=== PATIENT | female | born 1990 | race Caucasian/White ===

== ENCOUNTER 2020-04-29 18:53 | Inpatient (IN) | payer SELFPAY ==
[2020-04-29 19:02] VITALS: BP 129/99; PULSE 105; RESP 14; TEMP 36.6; O2SAT 100
[2020-04-29 19:45] VITALS: BP 138/98; PULSE 97; RESP 16; O2SAT 100
--- NOTE | 2020-04-29 19:51 | PC.NURSE ---
IV ESTABLISHED BY BY SANJEEV HOLT.
--- NOTE | 2020-04-29 20:00 | ECG_ITS ---
[facility] Test Date: 2020-04-29 Pat Name: Adelaide Muñoz Department: Room: Gender: Female Curriculum Developer: : 1990 Requested By: Talia Mishra I Order Number: [id number] Hugh MD: Triny Bradshaw M.D. Measurements Intervals [place] Rate: 90 P: 69 VA: 141 QRS: 47 QRSD: 89 T: 40 QT: 371 QTc: 454 Interpretive Statements SINUS RHYTHM No previous ECG available for comparison Electronically Signed On 04-29-2020 21:14:36 CDT by Triny Bradshaw M.D. [id number]
[2020-04-29 20:11] LABS: Basophils # 0.1 10^3/uL (0.0-0.1); Basophils % 0.6 %; Eosinophils # 0.2 10^3/uL (0.0-0.8); Hematocrit 41.5 % (37.0-47.0); Hemoglobin 13.7 g/dL (11.5-15.3); Lymphocytes # 4.9 10^3/uL (0.8-4.8); Lymphocytes % 49.6 %; Mean Corpuscular Volume 87.9 fL (81-99); Monocytes # 0.7 10^3/uL (0.2-0.9); Monocytes % 7.2 %; Neutrophils # 3.96 10^3/uL (1.8-7.7); Neutrophils % 40.4 %; Nucleated Red Blood Cells % 0 %; Platelet Count 436 10^3/cmm (130-400); Red Blood Count 4.72 10^6/uL (4.1-5.3); Red Cell Distribution Width 12.3 % (12.1-15.1); White Blood Count 9.8 10^3/uL (4.0-10.0)
[2020-04-29 20:21] LABS: Alanine Aminotransferase 32 U/L (0-33); Albumin Level 4.5 g/dL (3.5-5.2); Alkaline Phosphatase 77 IU/L (35-105); Anion Gap 13.3 (5-19); Aspartate Amino Transferase 22 U/L (0-32); Blood Urea Nitrogen 9 mg/dL (6-20); Carbon Dioxide 25 mmol/L (22-29); Chloride 99 mmol/L (98-107); Globulin 3.3 g/dL (1.3-4.6); Glomerular Filtration Rate 143.9 mL/min (90-130); Glucose 98 mg/dL (65-115); Osmolality Calculated 274 mOsm/kg (285-295); Potassium 3.3 mmol/L (3.5-5.1); Sodium 134 mmol/L (136-145); Total Bilirubin 0.5 mg/dL (0.15-1.2); Total Protein 7.8 g/dL (6.6-8.7)
[2020-04-29 20:25] LABS: Acetaminophen < 5.0 ug/mL (10-30); Alcohol Level < 10 mg/dL (0-10); Salicylate < 0.3 mg/dL (3-10)
--- NOTE | 2020-04-29 20:35 | PC.NURSE ---
INFORMED DR. ALVA OF PT RESPONDING TO MODERATE PAINFUL STIMULI. VO WITH READBACK FOR 0.4MG NARCAN IVP IF PT O2 SAT VIA RA GOES BELOW 90%.
[2020-04-29] MEDS: naloxone 0.4 mg/ml SDV IVP ×2 (20:54→23:27)
--- NOTE | 2020-04-29 21:51 | PC.NURSE ---
pc to poison control spoke with portia ramirez. no flumazenil. give fluids other supportive care as needed.
[2020-04-29 21:55] LABS: HCG Qualitative Urine. Negative (Negative); Protein Urine Trace (Negative); Specific Gravity, Urine 1.025 (1.005-1.030); Urine Appearance Clear (CLEAR); Urine Color Yellow (Yellow); pH Urine 5 (5-7)
[2020-04-29 21:56] LABS: Add Urine Microscopic? YES; Bilirubin Urine 1+ (NEGATIVE); Blood Urine Neg (Negative); Glucose Urine UA Norm (Normal); Ketones Urine Negative (Negative); Leukocyte Esterase Urine Negative (Negative); Nitrate Urine Negative (Negative); Urobilinogen Urine 1 mg/dL (Negative)
--- NOTE | 2020-04-29 21:56 | PC.NURSE ---
pc back from poison control spoke with oprtia pharmacist she recommended to obtain baseline acetaminophen and repeat it in for hours.
[2020-04-29 22:00] VITALS: BP 115/83; PULSE 86; RESP 20; O2SAT 97
[2020-04-29 22:00] LABS: Add Urine Culture? No; Amorphous Sediment Urine 1+; Amphetamines Screen Urine Positive (Negative); Bacteria Urine TRACE; Barbiturates Screen Urine Negative (Negative); Benzodiazepines Screen Urine Positive (Negative); Cocaine Screen Urine Negative (Negative); Mucus Urine 4+; Opiate Screen Urine Positive (Negative); PCP Screen Urine Positive (Negative); RBC Urine 0-4 /hpf (0-2); Squamous Epithelial Cell Urine 0-4 (0-5); THC Screen Urine Positive (Negative); WBC Urine 0-4 /hpf (0-5)
--- NOTE | 2020-04-29 22:02 | PC.NURSE ---
reported to dr. gamboa about rechecking acetaminophen level after 4 hours.
--- NOTE | 2020-04-29 22:20 | W.ED.OVERDOS ---
HPI - Overdose General: Chief Complaint: Overdose Stated Complaint: OVERDOSE Time Seen by Provider: 04/29/20 19:37 Source: patient, family (grandmother) and EMS Mode of arrival: EMS Limitations: altered mental status History of Present Illness: HPI Narrative: Patient is a 29-year-old female was brought in by EMS with a history of intentional overdose of Ativan, 19 tablets of the 1 mg tablets as well as 13 tablets of hydrocodone with strength unknown. Patient is quite drowsy and can only give a limited history. She however denies suicidal intention, but states she was stressed out. She did not receive any medications on her way to the ED. Her grandmother says the patient needs psychiatric help and will probably be best served by being admitted to the hospital MD complaint: intentional overdose Review of Systems General: Reports: ROS unobtainable due to mental status [facility] Female Reproductive History: Date of last menstrual period: 04/03/20 Physical Exam Const: COMMON NORMALS: no acute distress, average body habitus, patient oriented x3, no limitations, healthy appearing, alert and well nourished HENMT: COMMON NORMALS: normocephalic, atraumatic and moist oral mucous membranes HEAD & SCALP: normocephalic and atraumatic Eye: COMMON NORMALS: Equal, round and reactive pupils present, EOMs intact bilaterally, conjunctivae normal and no scleral icterus CONJUNCTIVA: Yes conjunctivae normal PUPIL: Yes Equal, round and reactive pupils present Neck/C-Spine: COMMON NORMALS: no meningeal signs and no JVD Resp: COMMON NORMALS: normal respiratory effort, No retractions, No use of accessory muscles, clear to auscultation bilaterally and percussion normal AUSCULTATION: clear to auscultation bilaterally PERCUSSION: percussion normal Cardio: COMMON NORMALS: no JVD, regular rate, regular rhythm, S1 normal heart sound present, S2 normal heart sound present, No gallops present (Cardio), No clicks present (Cardio), No murmurs present (Cardio), No rub (Cardio) and Peripheral pulses 2+ throughout RATE: regular rate RHYTHM: regular rhythm HEART SOUNDS: S1 normal heart sound present and S2 normal heart sound present PERIPHERAL PULSES: Peripheral pulses 2+ throughout GI: COMMON NORMALS: Normal to inspection, nondistended, normoactive bowel sounds present, Soft to palpation, non-tender, No hepatosplenomegaly present, no masses and no bruits PALPATION: Yes Soft to palpation and Yes No hepatosplenomegaly present Extremity: COMMON NORMALS: normal to inspection, full ROM, capillary refill normal, no calf tenderness and no pedal edema Neuro: COMMON NORMALS: patient oriented x3 SENSORIUM/ORIENTATION: Yes alert MENINGEAL SIGNS: Yes no meningeal signs Course Consultations: Consultation #1: Dr. Eason, psychiatrist. He kindly accepted patient to his service Time: 00:50 Vital Signs: Vital signs: Vital Signs Temperature 97.8 F 04/29/20 19:02 Pulse Rate 97 04/29/20 23:10 Respiratory Rate 15 04/29/20 23:10 Blood Pressure 115/77 04/29/20 22:44 Pulse Oximetry 100 04/29/20 23:10 MDM - Overdose MDM Narrative: Medical decision making narrative: 29-year-old female patient who was brought into the emergency department after a suicide attempt. She overdosed on some hydrocodone/acetaminophen and Ativan. Her drug screen however showed she was positive for much more than that including PCP, methamphetamines, marijuana. She was initially very drowsy and lethargic and was given a trial of Narcan which had minimal effect. After observation in the emergency department and repeating a 4-hour Tylenol level she was eventually alert and was able to walk without assistance down the hallway in the emergency department. She is therefore being admitted to the neuropsychiatric unit for further evaluation and management. A 96-hour hold order was placed. Medical Records: Attestation: I reviewed the patient's medical records. Lab Data: Attestation: I reviewed the patient's lab results. Labs: Lab Results 04/29/20 04/29/20 04/29/20 Range/Units 20:00 20:00 21:34 WBC 9.8 (4.0-10.0) 10^3/ uL RBC 4.72 (4.1-5.3) 10^6/u L Hgb 13.7 (11.5-15.3) g/dL Hct 41.5 (37.0-47.0) % MCV 87.9 (81-99) fL MCH 29.0 (28.0-34.0) pg MCHC 33.0 (30.0-36.0) g/dL RDW 12.3 (12.1-15.1) % Plt Count 436 H (130-400) 10^3/c mm MPV 9.0 (7.4-10.4) fL Neut % (Auto) 40.4 % Lymph % (Auto) 49.6 % [place] % (Auto) 7.2 % Eos % (Auto) 2.0 % Baso % (Auto) 0.6 % Neut # (Auto) 3.96 (1.8-7.7) 10^3/u L Lymph # (Auto) 4.9 H (0.8-4.8) 10^3/u L [place] # (Auto) 0.7 (0.2-0.9) 10^3/u L Eos # (Auto) 0.2 (0.0-0.8) 10^3/u L Baso # (Auto) 0.1 (0.0-0.1) 10^3/u L Nucleated RBC % (a uto) 0 % Nucleated RBCs # 0.0 /100WBC Sodium 134 L (136-145) mmol/L Potassium 3.3 L (3.5-5.1) mmol/L Chloride 99 (98-107) mmol/L Carbon Dioxide 25 (22-29) mmol/L Anion Gap 13.3 (5-19) BUN 9 (6-20) mg/dL Creatinine 0.5 (0.5-0.9) mg/dL GFR Calculation 143.9 H (90-130) mL/min Glucose 98 (65-115) mg/dL Calculated Osmolal ity 274 L (285-295) mOsm/k g Calcium 9.0 (8.5-10.5) mg/dL Total Bilirubin 0.5 (0.15-1.2) mg/dL AST 22 (0-32) U/L ALT 32 (0-33) U/L Alkaline Phosphata se 77 (35-105) IU/L Total Protein 7.8 (6.6-8.7) g/dL Albumin 4.5 (3.5-5.2) g/dL Globulin 3.3 (1.3-4.6) g/dL HCG, Qual Negative (Negative) Urine Color (Yellow) Urine Appearance (CLEAR) Urine pH (5-7) Ur Specific Gravit y (1.005-1.030) Urine Protein (Negative) Urine Glucose (UA) (Normal) Urine Ketones (Negative) Urine Blood (Negative) Urine Nitrate (Negative) Urine Bilirubin (NEGATIVE) Urine Urobilinogen (Negative) mg/dL Ur Leukocyte Lori ase (Negative) Urine RBC (0-2) /hpf Urine WBC (0-5) /hpf Ur Squamous Epith Cells (0-5) Amorphous Sediment Urine Bacteria (NONE) Urine Mucus Salicylates < 0.3 L (3-10) mg/dL Urine Opiates Scre en (Negative) ng/mL Acetaminophen < 5.0 L (10-30) ug/mL Ur Barbiturates Sc reen (Negative) ng/mL Ur Phencyclidine S crn (Negative) ng/mL Ur Amphetamines Sc reen (Negative) ng/mL U Benzodiazepines Scrn (Negative) ng/mL Urine Cocaine Scre en (Negative) ng/mL U Marijuana (THC) Screen (Negative) ng/mL Ethyl Alcohol < 10 (0-10) mg/dL 04/29/20 04/29/20 04/30/20 Range/Units 21:34 21:34 00:10 WBC (4.0-10.0) 10^3/ uL RBC (4.1-5.3) 10^6/u L Hgb (11.5-15.3) g/dL Hct (37.0-47.0) % MCV (81-99) fL MCH (28.0-34.0) pg MCHC (30.0-36.0) g/dL RDW (12.1-15.1) % Plt Count (130-400) 10^3/c mm MPV (7.4-10.4) fL Neut % (Auto) % Lymph % (Auto) % [place] % (Auto) % Eos % (Auto) % Baso % (Auto) % Neut # (Auto) (1.8-7.7) 10^3/u L Lymph # (Auto) (0.8-4.8) 10^3/u L [place] # (Auto) (0.2-0.9) 10^3/u L Eos # (Auto) (0.0-0.8) 10^3/u L Baso # (Auto) (0.0-0.1) 10^3/u L Nucleated RBC % (a uto) % Nucleated RBCs # /100WBC Sodium (136-145) mmol/L Potassium (3.5-5.1) mmol/L Chloride (98-107) mmol/L Carbon Dioxide (22-29) mmol/L Anion Gap (5-19) BUN (6-20) mg/dL Creatinine (0.5-0.9) mg/dL GFR Calculation (90-130) mL/min Glucose (65-115) mg/dL Calculated Osmolal ity (285-295) mOsm/k g Calcium (8.5-10.5) mg/dL Total Bilirubin (0.15-1.2) mg/dL AST (0-32) U/L ALT (0-33) U/L Alkaline Phosphata se (35-105) IU/L Total Protein (6.6-8.7) g/dL Albumin (3.5-5.2) g/dL Globulin (1.3-4.6) g/dL HCG, Qual (Negative) Urine Color Yellow (Yellow) Urine Appearance Clear (CLEAR) Urine pH 5 (5-7) Ur Specific Gravit y 1.025 (1.005-1.030) Urine Protein Trace (Negative) Urine Glucose (UA) Norm (Normal) Urine Ketones Negative (Negative) Urine Blood Neg (Negative) Urine Nitrate Negative (Negative) Urine Bilirubin 1+ H (NEGATIVE) Urine Urobilinogen 1 H (Negative) mg/dL Ur Leukocyte Lori ase Negative (Negative) Urine RBC 0-4 H (0-2) /hpf Urine WBC 0-4 H (0-5) /hpf Ur Squamous Epith Cells 0-4 H (0-5) Amorphous Sediment 1+ Urine Bacteria Trace (NONE) Urine Mucus 4+ Salicylates (3-10) mg/dL Urine Opiates Scre en Positive H (Negative) ng/mL Acetaminophen < 5.0 L (10-30) ug/mL Ur Barbiturates Sc reen Negative (Negative) ng/mL Ur Phencyclidine S crn Positive H (Negative) ng/mL Ur Amphetamines Sc reen Positive H (Negative) ng/mL U Benzodiazepines Scrn Positive H (Negative) ng/mL Urine Cocaine Scre en Negative (Negative) ng/mL U Marijuana (THC) Screen Positive H (Negative) ng/mL Ethyl Alcohol (0-10) mg/dL Discharge Plan Discharge Patient Disposition: Admitted As Inpatient Clinical Impression: Suicide attempt by multiple drug overdose, Polysubstance abuse Condition: Stable Referrals: Shaina Cole DO [Primary Care Provider] - Coding Level of Care Code ED Inside Barrel Lathe Operator for Chg Fwd Exam Comprehensive
[2020-04-29 22:44] VITALS: BP 115/77; PULSE 82; RESP 15; O2SAT 97
[2020-04-29 23:10] VITALS: PULSE 97; RESP 15; O2SAT 100
--- NOTE | 2020-04-29 23:10 | PC.NURSE ---
while at beside pt responds to moderate painful stimuli. informed dr. bee nichols with read back to adm 0.4mg narcan ivp. informed mela verbalized she would adm 0.4mg of ivp narcan.
--- NOTE | 2020-04-29 23:12 | PC.NURSE ---
report given to mela weiner assumed care.
[2020-04-30 00:45] LABS: Acetaminophen < 5.0 ug/mL (10-30)
[2020-04-30 02:11] VITALS: BP 128/62; PULSE 103; RESP 18
[2020-04-30 02:17] VITALS: BP 120/87; PULSE 98; RESP 19; TEMP 37.1; O2SAT 99
[2020-04-30 02:34] VITALS: BMI 22.3
[2020-04-30 06:00] VITALS: BP 97/66; PULSE 102; RESP 20; TEMP 37; O2SAT 99
--- NOTE | 2020-04-30 06:03 | PC.NURSE ---
HOME MEDS UNABLE TO VERIFY PT HOME MEDS DUE TO [facility] BEING CLOSED AT THIS TIME.
--- NOTE | 2020-04-30 10:50 | PM.NHP ---
Providers/Chief Complaint Admitting Physician: Kyler Eason MD Primary Care Provider: Shaina Cole DO Chief Complaint: OVERDOSE HPI NPU History of Present Illness Adelaide Muñoz is a 29 year old female who threw some mysterious series of events presented to the emergency room by ambulance. Emergency room physician note:HPI Narrative: Patient is a 29-year-old female was brought in by EMS with a history of intentional overdose of Ativan, 19 tablets of the 1 mg tablets as well as 13 tablets of hydrocodone with strength unknown. Patient is quite drowsy and can only give a limited history. She however denies suicidal intention, but states she was stressed out. She did not receive any medications on her way to the ED. She admits that she took excessive Ativan due to the stress that she was under. She says that she is dealing with her fianc? of 15 years and his evolving schizophrenia. She feels that all that she needs is time to rest and sleep off the medications that she took and have her Ativan and tramadol restarted. She did not elaborate. There is also some family discord which appears to be chronic as it resonates with documents and issues discussed in her prior outpatient mental health notes. She says that she suffers from anxiety for which she receives Ativan and is effective. She also suffers from chronic pain for which she receives tramadol. She takes them together without difficulty. She also has been prescribed Lamictal. She does not want to be on that medication because it puts her brain in a fog. However she does not feel that having a mood stabilizer would be beneficial if it will not cause her brain to be foggy. Otherwise she denied suicidal or homicidal ideation currently or any time in the past. She denied the presence of auditory or visual hallucinations. She refused to discuss the results of her urine drug screen saying that those results are not true. Laboratory Tests 04/29/20 04/29/20 20:00 21:34 Ur Barbiturates Screen Negative Ur Phencyclidine Scrn Positive H Ur Amphetamines Screen Positive H U Benzodiazepines Scrn Positive H Urine Cocaine Screen Negative U Marijuana (THC) Screen Positive H Ethyl Alcohol < 10 Past mental health history reveals that she was heavily involved in the behavioral health care outpatient system. Most recently she was being maintained on Lamictal 200 mg daily and Ativan 1 mg twice daily. She has never been hospitalized for mental health reasons. Social history please see mental status exam Review of Systems Narrative: Review of Systems Constitutional: Complains of: Fatigue Eyes: Complains of: No eye symptoms ENT/Mouth: Complains of: No ENTM symptoms Cardiovascular: Complains of: No cardiac symptoms Respiratory: Complains of: No respiratory symptoms GI: Complains of: No GI symptoms Neuro: Complains of: No neuro symptoms Musculoskeletal: Complains of: No musculoskeletal symptoms Skin: Complains of: No skin symptoms Hematologic/Lymphatic: Complains of: No hematologic/lymphatic symptoms Endocrine: Complains of: No endocrine symptoms : Complains of: No symptoms Psych: Complains of: Denied the presence of depression, Suicide ideation Meds NPU Home Medications Medication Instructions Recorded Confirmed Last Taken Type Benadryl 04/30/20 Unknown History Ortho Tri-Cyclen (28) 04/30/20 Unknown History tramadol 04/30/20 Unknown History Allergies Allergy/AdvReac Type Severity Reaction Status Date / Time penicillin G Allergy Unknown Verified 04/29/20 19:14 Mental Status Exam MSE Comments: Mental Status Exam: Appearance: hygiene is fair; no gross neurological deficits., gait is unremarkable; AIMS=0 Speech: Speech is of normal rate and rhythm and easily understood. Thought processes: Thought processes are abstract. Judgment is not adequate for safety. Associations: intact Psychotic processes: There is no indication of guarding or paranoia. There is no attention to the internal stimuli. Auditory and visual hallucinations are denied. Judgment: Insight is fair. Problem solving skills are adequate for safety. Orientation: The patient is oriented to person, place time and situation. Memory: no deficits noted in immediate, intermediate, or remote spheres. Attention: The patient is alert and interpersonally engaged. Language: Verbalizations are coherent. Fund of knowledge: Fund of knowledge is adequate. Affect/Mood: Affect is consistent with a depressed mood. pt denies suicidal ideation Affective range is appropriate. Psychosis: perception unimpaired except through cognitive distortion; reality testing intact. Vitals/I&O/Wt Last Vital Signs Temp 98.6 F 04/30/20 06:00 Pulse 102 H 04/30/20 06:00 Resp 20 H 04/30/20 06:00 BP 97/66 04/30/20 06:00 Pulse Ox 99 04/30/20 06:00 Weight last 48 hrs Weight 58.967 kg Weight 58.967 kg Physical Exam Urinary Catheter Management^: Baird: Cath Placed During This Visit: yes Urinary Catheter Date of Insertion: 04/29/20 Urinary Catheter Time of Insertion: 22:21 Data NPU : 04/29/20 20:00 04/29/20 20:00 A&P Assessment and plan (1) Amphetamine abuse: Status: Acute (2) PCP delirium: Status: Acute (3) Marijuana use: Status: Acute (4) Polysubstance abuse: Status: Acute Additional A&P Information Due to the psychiatric conditions and treatment listed in the Assessment and Plan - the patient requires continued hospitalization. Will provide a safe and therapeutic environment for patient.. Will continue inpatient treatment to allow for medication adjustment and monitoring. Will continue q15 min safety checks. At the patient's request we will restart her Ativan at 1 mg twice daily and tramadol 50 mg every 12 hours which has been effective for her in the past. She refused to restart of her Lamictal. We will continue to monitor her for signs of side effects and occult signs of withdrawal. She refused reinitiation of Lamictal. Monitor patient's mood, sleep, appetite, and behavior closely. Encourage patient to participate in individual and group therapeutic sessions on the [place]. Estimated length of stay 5 days The expected benefits and potential side effects of patient's psychiatric medications were discussed with the patient. The patient understands and consents to treatment. CRITERIA FOR DISCHARGE: stable on medications and no longer an imminent threat to self or others Involuntary Hold Information 96 Hour Hold: 96 Hour Involuntary Admission: Yes 96 Hour Hold Ending Date: 05/06/20 96 Hour Hold Ending Time: 19:37 Attestations NPU Medical Necessity Statement*: Patient will remain in the hospital another 3-5 nights for the completion of her 96-hour involuntary commitment. Coding Level of Care Code Acute Con[employer] Fre[employer] for Arnoldo Benson Diagnoses Amphetamine abuse F15.10 PCP delirium F16.921 Marijuana use F12.90 Polysubstance abuse F19.10
[2020-04-30 14:00] VITALS: BP 108/75; PULSE 84; RESP 18; TEMP 36.9; O2SAT 96
[2020-04-30] MEDS: TRAMadol 50 mg Tablet PO (14:56)
[2020-04-30] MEDS: LORazepam 1 mg Tablet PO (17:18)
[2020-04-30 20:52] VITALS: BP 106/71; PULSE 83; RESP 20; TEMP 36.9; O2SAT 100
[2020-05-01 06:00] VITALS: BP 96/62; PULSE 85; RESP 16; TEMP 36.9; O2SAT 97
[2020-05-01] MEDS: TRAMadol 50 mg Tablet PO ×2 (06:04→20:45)
[2020-05-01] MEDS: LORazepam 1 mg Tablet PO ×2 (08:11→16:44)
[2020-05-01] MEDS: acetaminophen 325 mg Tablet 650 MG PO (13:29)
[2020-05-01 14:00] VITALS: BP 111/77; PULSE 90; RESP 18; TEMP 37
--- NOTE | 2020-05-01 14:52 | P.HP_ITS ---
Providers/Chief Complaint Admitting Physician: Itz Mobley M.D. Primary Care Provider: Shaina Cole DO Chief Complaint: OVERDOSE HPI NPU History of Present Illness Adelaide Muñoz is a 29 year old female Meds NPU Home Medications Medication Instructions Recorded Confirmed Last Taken Type Benadryl 04/30/20 Unknown History Ortho Tri-Cyclen (28) 04/30/20 Unknown History tramadol 04/30/20 Unknown History Allergies Allergy/AdvReac Type Severity Reaction Status Date / Time penicillin G Allergy Unknown Verified 04/29/20 19:14 Vitals/I&O/Wt Last Vital Signs Temp 98.6 F 05/01/20 14:00 Pulse 90 05/01/20 14:00 Resp 18 05/01/20 14:00 BP 111/77 05/01/20 14:00 Pulse Ox 97 05/01/20 06:00 Weight last 48 hrs Weight 140 lb Weight 130 lb Weight 130 lb Physical Exam Urinary Catheter Management^: Baird: Cath Placed During This Visit: yes Urinary Catheter Date of Insertion: 04/29/20 Urinary Catheter Time of Insertion: 22:21 Data NPU : 04/29/20 20:00 04/29/20 20:00 Involuntary Hold Information 96 Hour Hold: 96 Hour Involuntary Admission: Yes 96 Hour Hold Ending Date: 05/06/20 96 Hour Hold Ending Time: 19:37 Coding Level of Care Code Acute Crop Supervisor for Arnoldo Benson
--- NOTE | 2020-05-01 14:55 | P.PN_ITS ---
Subjective NPU Subjective: Interval history: The patient feels much clearer in her mind today. She now recognizes that she cannot control what is in the illegal substances she was consuming and this could be very dangerous. Insight and judgment appear to be intact. Medications: Reviewed: Yes Medication Review Details: Current Medications Acetaminophen (Tylenol) 650 mg PO Q4H PRN PRN Reason: MILD PAIN Last Admin: 05/01/20 13:29 Dose: 650 mg Documented by: Benztropine Mesylate (Cogentin) 1 mg PO BID PRN PRN Reason: Mild Extrapyramidal symptoms Camphor/Menthol/Phenol (Blistex) 1 applic TOPICAL Q1H PRN PRN Reason: DRYNESS Diphenhydramine HCl (Benadryl) 50 mg IM ONCE PRN PRN Reason: Severe Extrapyramidal Symptoms Diphenhydramine HCl (Benadryl) 50 mg IM Q4H PRN PRN Reason: Severe Aggression Haloperidol (Haldol) 5 mg PO Q4H PRN PRN Reason: AGITATION Haloperidol Lactate (Haldol Inj) 5 mg IM Q4H PRN PRN Reason: Severe Aggression Hydroxyzine Pamoate (Vistaril) 50 mg PO Q6H PRN PRN Reason: ANXIETY Loperamide HCl (Imodium Capsule) 2 mg PO Q6H PRN PRN Reason: DIARRHEA Lorazepam (Ativan) 1 mg PO BID JOSE Last Admin: 05/01/20 08:11 Dose: 1 mg Documented by: Nicotine (Nicoderm 21 Mg Patch) 1 patch TRANSDERMA DAILY PRN PRN Reason: NICOTINE WITHDRAWAL Nicotine Polacrilex (Nicorette) 2 mg BUCCAL Q2H PRN PRN Reason: NICOTINE WITHDRAWAL Olanzapine (Zyprexa Zydis) 5 mg PO Q4H PRN PRN Reason: Agitation/Psychosis Ondansetron HCl (Zofran) 4 mg PO Q6H PRN PRN Reason: NAUSEA AND VOMITING Tramadol HCl (Ultram) 50 mg PO Q12H PRN PRN Reason: MODERATE PAIN Last Admin: 05/01/20 06:04 Dose: 50 mg Documented by: Trazodone HCl (Desyrel) 50 mg PO BEDTIME PRN PRN Reason: SLEEP Mental Status Exam MSE Comments: This is a 29-year-old female who appears her stated age. She is clean and neat and well kept. Mood is mildly anxious and affect is appropriate. There are no odd behaviors. Thought processes are integrated and free of any racing blocking or looseness of association. Speech is of normal rate and volume, without dysarthria, aprosody or pressure. There is no evidence of psychosis, such as but not limited to hallucinations, delusions or ideas of reference. The patient denies suicidal or homicidal ideation, plan or intent. Insight and judgment appear to be quite intact as is cognitive endowment. Vitals/I&O/Wt Last Vital Signs Temp 98.6 F 05/01/20 14:00 Pulse 90 05/01/20 14:00 Resp 18 05/01/20 14:00 BP 111/77 05/01/20 14:00 Pulse Ox 97 05/01/20 06:00 Weight last 48 hrs Weight 140 lb Weight 130 lb Weight 130 lb Physical Exam Urinary Catheter Management^: Baird: Cath Placed During This Visit: yes Urinary Catheter Date of Insertion: 04/29/20 Urinary Catheter Time of Insertion: 22:21 Data NPU : 04/29/20 20:00 04/29/20 20:00 A&P Assessment and plan (1) Marijuana use: Status: Acute (2) PCP delirium: Status: Acute (3) Amphetamine abuse: Status: Acute (4) Polysubstance abuse: Status: Acute Involuntary Hold Information 96 Hour Hold: 96 Hour Involuntary Admission: Yes 96 Hour Hold Ending Date: 05/06/20 96 Hour Hold Ending Time: 19:37 Attestations NPU Medical Necessity Statement*: I anticipate 7 additional midnights hospital stay. Time Spent in Patient Care: Greater than 35 minutes (>than 50% of time spent in counselling and/or direct pt care on unit) . Coding Level of Care Code Acute Utilities Estimator And Drafter for Aliceg Fwd Diagnoses Marijuana use F12.90 PCP delirium F16.921 Amphetamine abuse F15.10 Polysubstance abuse F19.10
[2020-05-01] MEDS: hyDROXYzine 25 mg Capsule 50 MG PO (20:45)
[2020-05-01] MEDS: trazodone 50 mg Tablet PO (20:45)
--- NOTE | 2020-05-01 21:21 | PC.NURSE ---
PRNs given @2044 visteril 50mg PO for anxiety Tramadol 50mg PO for pain. complaining of shoulder pain will continue to monitor
[2020-05-01 22:00] VITALS: BP 125/82; PULSE 93; RESP 18; TEMP 36.6; O2SAT 99
[2020-05-02 06:00] VITALS: BP 96/63; PULSE 87; RESP 16; TEMP 36.6; O2SAT 98
[2020-05-02] MEDS: LORazepam 1 mg Tablet PO (09:07)
--- NOTE | 2020-05-02 10:52 | P.DS_ITS ---
Diagnoses at Discharge Discharge Diagnosis (1) Marijuana use: Status: Chronic Problem details: Patient is at risk of relapse. (2) PCP delirium: Status: Resolved Problem details: Contaminant of amphetamine abuse by the patient. (3) Amphetamine abuse: Status: Chronic Problem details: Patient is at risk of relapse and does not want to pursue recovery. (4) Polysubstance abuse: Status: Chronic Problem details: See above. Reason for Visit Reason for Visit: OVERDOSE Hospital Course Hospital Course Day #2 the patient's mind is clearer. Insight and judgment appear to be intact and focused on the danger of her polysubstance abuse. Discharge Summary The patient now is clear in her mind. She has decided she does not want to do any recovery work with any program. There is nothing more we can do for her. Her diagnoses are chronic and the delirium is resolved. Our menu planner has given her resources which she may access if she chooses. We do not currently have the wherewithal to continue to violate her [place] interests and so are rescinding her 96-hour hold petition. Involuntary Hold Information 96 Hour Hold: 96 Hour Involuntary Admission: No 96 Hour Hold Ending Date: 05/06/20 96 Hour Hold Ending Time: 19:37 Comments: Rescinded today. Mental Status Exam MSE Comments: This is a 29-year-old female who appears her stated age. She is clean and neat and well kempt. Mood is calm and affect is appropriate. There are no odd behaviors. Thought processes are integrated and free of any racing, blocking or looseness of association. Speech is of normal rate and volume, without dysarthria, aprosody or pressure. There is no evidence of psychosis such as but not limited to hallucinations, delusions or ideas of reference. The patient denies suicidal or homicidal ideation, plan or intent. Insight and judgment appear to be quite intact as is cognitive endowment. She is competent, per my assessment today, to resume the increased risk of outpatient follow-up which she may pursue if she so chooses. Physical Exam Urinary Catheter Management^: Baird: Cath Placed During This Visit: yes Urinary Catheter Date of Insertion: 04/29/20 Urinary Catheter Time of Insertion: 22:21 Discharge Data Vitals: Last Vital Signs Temp 97.8 F 05/02/20 06:00 Pulse 87 05/02/20 06:00 Resp 16 05/02/20 06:00 BP 96/63 05/02/20 06:00 Pulse Ox 98 05/02/20 06:00 Discharge Plan Discharge Patient Disposition: Home Condition: Stable Prescriptions: New tramadol 50 mg Tablet 50 mg PO Q12H PRN (Reason: Moderate Pain) 30 Days Qty: 60 RF: 0 Discontinued Ortho Tri-Cyclen (28) RF: 0 Benadryl RF: 0 tramadol RF: 0 Discharge Orders: Discharge Order (Routine); Ordered 05/02/20 Ordered By: Itz Mobley Referrals: [facility] [Outside] - 1-3 days (call and request initial intake to get outpatient mental health services. ) [facility] [Outside] (If you are interested, you may call [facility] and ask for substance abuse treatment. ) Shaina Cole DO [Primary Care Provider] - Discharge Diet: Usual diet Discharge Activity: Resume usual activity Patient Instructions: Tramadol (By mouth) Discharge Attestations NPU Time Spent in Discharge Care*: greater than 30 min Specific Discharge Activities: Specific discharge activities: educating patient, discussing with pet house sitter/social workers/dc planners, documenting/other paperwork and evaluating patient/reviewing data Other discharge activites (optional): Consultation with charge nurse. Status at Discharge: Cognitive status at discharge: cognitively intact , Behavioral status at discharge: cooperative , Functional status at discharge: independent ambulation Overall status at discharge: patient is back to baseline Coding Level of Care Code Acute Manager Risk Management for Arnoldo Fwd Diagnoses Marijuana use F12.90 PCP delirium F16.921 Amphetamine abuse F15.10 Polysubstance abuse F19.10
[2020-05-02 10:55] VITALS: BP 96/63; PULSE 87; RESP 16; TEMP 36.6; O2SAT 98
== END 2020-05-02 11:50 | disposition home or self-care (01) | DRG 897 ==
LOC: ER 04-30 00:55 → NP 04-30 01:08
PROVIDERS: Family Medicine; Admitting Provider Psychiatry & Neurology Psychiatry; PCP Family Medicine; Visit Provider Psychiatry & Neurology Psychiatry
DX: F16.921 Hallucinogen use, unspecified with intoxication with delirium (principal); F15.10 Other stimulant abuse, uncomplicated; F12.90 Cannabis use, unspecified, uncomplicated; F19.10 Other psychoactive substance abuse, uncomplicated
CPT/HCPCS: 12345; 51702; 80053; 80306; 80307; 81001; 81025; 85025; 93005; 96375; 99285; J2310